=== PATIENT | female | born 1995 | race Two or more races ===

== ENCOUNTER 2019-11-08 11:01 | Emergency (ER) | payer MEDICAID, OTHER ==
[~2019-11-08] VITALS: Ht 165.1 cm; Wt 84.4 kg
[2019-11-08 11:10] VITALS: BP 131/88
[2019-11-08] MEDS ORDERED: LIDOCAINE 1% HCL (LOCAL ANESTH.) INJ 20ML MDV ONE (13:46)
== END 2019-11-08 12:39 | disposition home or self-care (01) ==
LOC: ER 11:01
DX: K04.7 Periapical abscess without sinus (principal)
CPT/HCPCS: 99283; J2001